=== PATIENT | female | born 1965 | race Caucasian/White ===

== ENCOUNTER 2020-03-29 01:48 | Emergency (ER) | payer OTHER, SELFPAY ==
[2020-03-29 01:50] VITALS: BP 157/89; PULSE 116; RESP 16; TEMP 37.1; O2SAT 98; BMI 28.1
--- NOTE | 2020-03-29 02:42 | ED.VIS.GEN ---
History of Present Illness Chief Complaint: Vag Bleeding Informant: Patient Onset: Days Narrative: Patient presents with heavy vaginal bleeding. She states she last had a normal period in September. She did not have any bleeding in October, November, or December. In January she had some mild spotting. Late last week she had some mild bleeding. For the past 2 days has had some intermittent cramping relieved with Advil. By the time she left work last evening bleeding had completely subsided. Patient woke from sleep early this morning with heavy bleeding. She states she did pass multiple clots into the toilet. At this time cramping has completely resolved. Past Medical History - Allergies and Home Meds Allergies/Adverse Reactions: Allergies No Known Allergies Allergy (Verified 03/29/20 01:55) Primary Care Physician: Vanessa Perez MD [STAFF PHYSICIAN] - 1 Week Past Medical History: None Smoking Status: Never smoker Review of Systems General: Denies: Chills, Fever Eyes: Denies: Visual changes - bilaterally ENT: Denies: Bilateral ear pain Cardiovascular: Denies: Chest pain Respiratory: Denies: Dyspnea, Cough Gastrointestinal: Reports: Abdominal pain - Pelvic cramping. Denies: Nausea, Vomiting, Diarrhea Genitourinary: Denies: Dysuria Neurological: Denies: Headache Psych: Denies: Depression Hematologic: Denies: Easy bruising, Easy bleeding Allergy: Denies: Uticaria Physical Exam Vital Signs/Narrative: Vital Signs Temp Pulse Resp BP Pulse Ox 03/29/20 01:50 98.7 F 116 H 16 157/89 H 98 Inital Vital Signs reviewed: Yes General: Well nourished, Well developed Head: Normocephalic ENT: Moist mucous membranes Neck: Supple Cardiovascular: Regular rhythm, Tachycardia Respiratory: No distress, CTA bilaterally Abdomen: Soft, Nontender, Normal bowel sounds : - - Pelvic exam reveals bleeding from the cervical office. Small clots were removed from the vaginal vault. No lesions or masses are noted. Extremities: Nontender Skin: Normal color Neurological: Alert, Oriented x3 Psychological: Normal affect Diagnostic/Tx/Re-eval Laboratory Results 03/29/20 03/29/20 03/29/20 02:00 02:00 02:00 WBC 8.5 RBC 4.28 Hgb 10.8 L Hct 34.7 L MCV 81.1 MCH 25.2 L MCHC 31.1 L RDW Std Deviation 56.3 H RDW Coeff of Sukhdeep 19.2 H Plt Count 286 MPV 9.5 Immature Gran % (Auto) 0.400 Neut % (Auto) 62.7 Lymph % (Auto) 22.5 Dickinson % (Auto) 11.7 H Eos % (Auto) 2.0 Baso % (Auto) 0.7 Absolute Neuts (auto) 5.3 Absolute Lymphs (auto) 1.90 Nucleated RBC % 0 PT 13.4 INR 1.1 APTT 30.6 Sodium 137 Potassium 3.4 L Chloride 105 Carbon Dioxide 26.0 Anion Gap 6 BUN 10 Creatinine 0.76 Estim Creat Clear Calc 71.63 Est GFR (MDRD) Af Amer 103 Est GFR (MDRD) Non-Af 85 BUN/Creatinine Ratio 13.2 Glucose 105 Calcium 8.4 L Serum , Qual 03/29/20 02:00 WBC RBC Hgb Hct MCV MCH MCHC RDW Std Deviation RDW Coeff of Sukhdeep Plt Count MPV Immature Gran % (Auto) Neut % (Auto) Lymph % (Auto) Dickinson % (Auto) Eos % (Auto) Baso % (Auto) Absolute Neuts (auto) Absolute Lymphs (auto) Nucleated RBC % PT INR APTT Sodium Potassium Chloride Carbon Dioxide Anion Gap BUN Creatinine Estim Creat Clear Calc Est GFR (MDRD) Af Amer Est GFR (MDRD) Non-Af BUN/Creatinine Ratio Glucose Calcium Serum , Qual NEGATIVE - Medical Decision Making Patient's heart rate is improved to 100 with IV fluids. Test results are discussed with her. At this time her hemoglobin is 10.8. Pelvic examination does not reveal mass or any unusual source of bleeding. Patient is requesting something to help her slow down the bleeding. I spoke with Dr. Perez and she suggested writing Aygestin 3 times daily x3 days then twice daily x3 days. Patient is to call the office for follow-up. We do not have this medication available in our system. I spoke with the pharmacist and they confirmed it is not available here currently. Patient will pick the prescription up in the morning. ED Disposition - Plan for ED Patient: Disposition: Home or Assisted Living Diagnosis: Menorrhagia Instructions: ED Bleeding Menstrual Heavy Prescriptions: Norethindrone [Aygestin] 5 mg PO TID #15 tab Transmission Status: [facility] to [facility] Referrals: Vanessa Perez MD [STAFF PHYSICIAN] - 1 Week
[2020-03-29 02:50] LABS: Absolute Neutrophil Count 5.3 X10^3/uL (2.0-7.7); Basophil# 0.06 X10^3/uL; Basophil% 0.7 % (0-1); Eosinophil# 0.17 X10^3/uL; Hematocrit 34.7 % (37-47); Hemoglobin 10.8 g/dL (12.0-15.0); Lymphocyte % 22.5 % (19-41); Mean Corp Hgb Conc 31.1 g/dL (32-36); Mean Corpuscular Hgb 25.2 pg (27.0-32.0); Mean Corpuscular Volume 81.1 fL (81-99); Mean Platelet Vol. 9.5 fl (6.2-12.0); Monocyte# 0.99 X10^3/uL; Monocyte% 11.7 % (0-10); NRBC Flagged by Analyzer 0 % (0-5); Neutrophil % 62.7 % (47-70); Platelet Count 286 K/mm3 (150-450); RBC Distribution Width CV 19.2 % (11.6-14.6); RBC Distribution Width SD 56.3 fl (35.1-43.9); Red Blood Count 4.28 M/mm3 (4.2-5.4); White Blood Count 8.5 K/mm3 (4.4-11.0)
[2020-03-29 02:56] LABS: Internal QC Validated? YES +Cl - CLEAR BKGD; Pregnancy, Serum, hCG Quali. NEGATIVE Negative
[2020-03-29 03:01] LABS: Anion Gap 6 (5-15); BUN 10 mg/dL (7-18); BUN/Creat Ratio 13.2 RATIO (10-20); Calcium,Total 8.4 mg/dL (8.5-10.1); Chloride 105 mmol/L (98-107); Creatinine, Serum 0.76 mg/dL (0.55-1.02); EST Glomerular Filtration Rate 85 mL/min (>60); Est Glom Filt Rate - Afr Amer 103 mL/min (>60); Estimated Creatinine Clearance 71.63 ml/min; Glucose 105 mg/dL (74-106); Potassium 3.4 mmol/L (3.5-5.1); Sodium Level 137 mmol/L (136-145)
[2020-03-29 03:06] LABS: International Normalized Ratio 1.1; Partial Thromboplast Time 30.6 Seconds (24.1-36.2); Prothrombin Time (Protime)PT. 13.4 SECONDS (11.7-14.9)
[2020-03-29 03:55] VITALS: BP 151/87; PULSE 91; RESP 15; O2SAT 97
== END 2020-03-29 04:15 | disposition home or self-care (01) ==
PROVIDERS: Emergency Provider Emergency Medicine; PCP Family Medicine
DX: N92.0 Excessive and frequent menstruation with regular cycle (principal)
CPT/HCPCS: 80048; 84703; 85025; 85610; 85730; 96360; 99283; J7030; A4216

== ENCOUNTER 2020-06-16 19:48 | Emergency (ER) | payer OTHER, SELFPAY ==
[2020-06-16 19:50] VITALS: BP 134/67; PULSE 101; RESP 16; TEMP 36.6; O2SAT 98; BMI 26.6
[2020-06-16 19:51] VITALS: BP 134/67; PULSE 111; RESP 18; TEMP 36.6; O2SAT 97
[2020-06-16 20:49] LABS: Absolute Neutrophil Count 7.6 X10^3/uL (2.0-7.7); Basophil# 0.09 X10^3/uL; Basophil% 0.8 % (0-1); Eosinophil# 0.24 X10^3/uL; Eosinophils% 2.2 % (0-5); Hematocrit 39.9 % (37-47); Hemoglobin 12.7 g/dL (12.0-15.0); Lymphocyte % 16.7 % (19-41); Mean Corp Hgb Conc 31.8 g/dL (32-36); Mean Corpuscular Hgb 26.7 pg (27.0-32.0); Mean Platelet Vol. 9.6 fl (6.2-12.0); Monocyte# 1.05 X10^3/uL; Monocyte% 9.7 % (0-10); NRBC Flagged by Analyzer 0 % (0-5); Neutrophil # 7.58 X10^3/uL (2.7-7.7); Neutrophil % 70.3 % (47-70); Platelet Count 379 K/mm3 (150-450); RBC Distribution Width CV 15.6 % (11.6-14.6); RBC Distribution Width SD 47.4 fl (35.1-43.9); Red Blood Count 4.75 M/mm3 (4.2-5.4); White Blood Count 10.8 K/mm3 (4.4-11.0)
--- NOTE | 2020-06-16 21:01 | ED.DCSUM_ITS ---
- ER Visit Summary Date of Service: 06/16/20 Chief Complaint: Vaginal bleeding History of Present Illness: The patient is a [address] Veronica. She has a history of a large fibroid and had an IUD placed last month. Patient reports she has vaginal bleeding that began approximately 5 days ago. States that currently is similar to her typical.. However, it was heavy this afternoon she passed clots. She reports that she had a crampy lower abdominal pain this afternoon was 5-10 in severity. She denies any pain now. She reports that she could feel the strings to her IUD at her introitus prior to coming the emergency department. Physical Examination: Vitals: Stable. Afebrile. General: Well-nourished and well-developed. Head: Normocephalic atraumatic. Neck: Supple, no lymphadenopathy. No JVD. Nontender. Cardiovascular: Tachycardic regular rhythm. No murmurs. Respiratory: No respiratory distress. Clear to auscultation bilaterally. Abdominal: Soft, nontender, nondistended, normal bowel sounds. No guarding, rebound, or peritoneal signs. Pelvic: Normal external genitalia. There is mild active bleeding, but no bright red blood in the vault. There is clot and old appearing blood. The IUD is sitting in the vaginal canal. It was removed without any resistance. Back: Nontender. Extremities: Nontender, no edema. Skin: Normal color, no rash. Neurologic: Alert and oriented ?3. Cranial nerves II through XII are intact. Normal strength and sensation. Psych: Normal affect. Test Results: CBC is normal. Emergency Department Course and Treatment: Patient is resting comfortably. Treatment Plan: Patient was discussed with Dr. Veronica. At this time I do not think that the IUD was implanted in her vaginal wall. She is instructed to begin an Aygestin taper. Follow-up Dr. Veronica in 1 week for another exam. Return to the emergency department for any worsening symptoms. Disposition: To home in improved and stable condition. Impression: 1. Irregular vaginal bleeding. 2. Uterine fibroids. 3. IUD removal. This note was generated with [employer] software. It may contain incorrect words, spelling, and punctuation that were not noted in review of the chart prior to signing ED Disposition - Plan for ED Patient: Disposition: Home or Assisted Living Instructions: ED FIBROIDS Referrals: Amna Veronica DO [STAFF PHYSICIAN] - 5-7 Days
== END 2020-06-16 21:29 | disposition home or self-care (01) ==
LOC: ED 20:37
PROVIDERS: Emergency Provider Emergency Medicine; PCP Family Medicine
DX: N93.9 Abnormal uterine and vaginal bleeding, unspecified (principal); D25.9 Leiomyoma of uterus, unspecified; Z30.432 Encounter for removal of intrauterine contraceptive device
CPT/HCPCS: 85025; 99283

== ENCOUNTER → 2020-08-17 08:18 | Outpatient (CLI) | payer OTHER, SELFPAY ==
--- NOTE | 2020-08-17 08:21 | BI_ITS ---
MAMMOGRAPHY - BILATERAL SCREENING REASON FOR EXAM: Female, 54 years old. Routine annual screening examination. PERTINENT HISTORY: Mother with breast cancer. TECHNIQUE: Digital bilateral breast ion (3D mammographic acquisition) in the CC and MLO projections. 2-D mediolateral oblique (MLO) and craniocaudad (CC) views of both breasts were obtained. CAD: Full Field Digital Mammography with Computer Added Detection was performed. COMPARISON: None. Baseline examination. FINDINGS: Breast Composition: The breasts are heterogeneously dense, which may obscure small masses. There are no dominant masses or suspicious calcifications. No other significant abnormalities are identified. BI/SCREEN MAMM (CAD) W/ION BILAT IMPRESSION: Negative screening mammogram. Yearly followup mammogram recommended. (A) ASSESSMENT CATEGORY: BIRADS Category 1: Negative. A letter regarding these results will be sent to the patient by the facility within 30 days. Approximately 10% of breast cancers are not detected by mammography. A normal mammogram should not delay biopsy of a clinically suspicious abnormality. [id number] Electronically Signed: Bo Gunter, at 11:17 EDT , Service support ,
== END ==
PROVIDERS: PCP Family Medicine; Referring Provider Obstetrics & Gynecology; Visit Provider Obstetrics & Gynecology
DX: Z12.31 Encounter for screening mammogram for malignant neoplasm of breast (principal)
CPT/HCPCS: 77063; 77067

== ENCOUNTER 2020-09-07 10:41 | Inpatient (IN) | payer OTHER, SELFPAY ==
--- NOTE | 2020-08-29 12:26 | EKG12_ITS ---
Test Reason : PRE OP Blood Pressure : / mmHG Vent. Rate : 115 BPM Atrial Rate : 115 BPM P-R Int : 160 ms QRS Dur : 074 ms QT Int : 330 ms P-R-T Axes : 040 033 -31 degrees QTc Int : 456 ms Sinus tachycardia Nonspecific ST and T wave abnormality Abnormal ECG Confirmed by SY NGUYEN, ELIZABETH ([id number]), material expeditor CHARLOTTE KENDALL ([id number]) on 08/30/2020 10:16:36 AM Referred By: Dc Bautista Confirmed By:ELIZABETH DAN MD
[2020-08-29 14:58] LABS: Hematocrit 43.7 % (37-47); Hemoglobin 13.3 g/dL (12.0-15.0); Mean Corp Hgb Conc 30.4 g/dL (32-36); Mean Corpuscular Hgb 25.7 pg (27.0-32.0); Mean Corpuscular Volume 84.4 fL (81-99); Mean Platelet Vol. 10.1 fl (6.2-12.0); Platelet Count 319 K/mm3 (150-450); RBC Distribution Width CV 18.6 % (11.6-14.6); RBC Distribution Width SD 56.6 fl (35.1-43.9); Red Blood Count 5.18 M/mm3 (4.2-5.4); White Blood Count 7.3 K/mm3 (4.4-11.0)
--- NOTE | 2020-09-06 18:59 | HP.PCM_ITS ---
History and Physical Surgical History and Physical Date: 09/06/2020 Name: KENYETTA HERNANDEZ Age: 54 Date of : 1965 Kenyetta Hernandez, a 54 year old female 0 0 0 0 0, presents for Robotic assisted total laparoscopic hysterectomy bilateral salpingectomy, cystoscopy on September 07, 2020 at 7:30. -- Kenyetta reports that she started having heavy bleeding in March. Went to ER and was diagnosed with a fibroid. She feels she had a pap, Endometrial Bx. She had IUD placed first for bleeding control and this came out and then oral progesterone was uses. She continues with almost daily bleeding unless she increases her Norethindrone. If using this only once per day will most likely have spotting. She is really interested in a more definative treatment plan. Would like to discuss hysterectomy. She has never had a mammogram and advised order will be given. Will attempt to get records from [facility]. Planned RA TL[facility]/BS. PAT packet provided and reviewed, consents are signed. MEDICATIONS HISTORY: Current medications prescribed by our practice are: 1. norethindrone acetate 5 mg tablet, 1 PO QD ALLERGIES: No Known Drug Allergies Infections - Chicken pox Illnesses - Fibroid, anemia improved Accidents - no injuries of consequence Hospitalizations - None Review of Systems: GENERAL - Denies fever, or chills SKIN - Denies skin changes EYES - wears eye glasses EARS - Denies difficulty hearing NOSE - Denies nasal congestion or bleeding MOUTH - Denies sore throat or difficulty swallowing NECK - Denies pain or swelling RESPIRATORY - Denies shortness of breath or wheezing CARDIOVASCULAR - Denies palpitations or chest pain GASTROINTESTINAL - Denies nausea, vomiting, diarrhea, constipation GENITOURINARY - irregular bleeding, known fibroid, intermittent discomfort MUSCULOSKELETAL - back pain NEUROLOGICAL - Denies localized numbness or weakness PSYCHIATRIC - Denies depression or anxiety ENDOCRINE - Denies heat or cold intolerance, weight loss or gain HEMATO-IMMUNOLOGIC - Denies excessive bleeding with cuts SOCIAL HISTORY: Alcohol Use - denies drinking Smoking - denies smoking Diet - no special diet Lifestyle - active Employer - [employer] Description - [employer] Illicit Drug Use - denies use of street drugs Sexual Activity - never has been sexually active Hours Worked - 40+ Control - abstinence FAMILY HISTORY: MENSTRUAL HISTORY: LMP Known?- Approximate-Month Known, Regularity - bleeds between periods, LMP - 07/21/20, Age Onset Menarche - 16 PAST PREGNANCIES: Total Pregnancies - 0; Full Term Pregnancies - 0; Premature - 0; Abortions, Induced - 0; Abortions, Spontaneous - 0; Ectopics - 0; Multiple Births - 0; Living Children - 0 SURGICAL HISTORY: 1. none ; - PHYSICAL EXAM BP- 150/74 Sitting, Right arm, regular cuff Weight- 148.18885 lbs Height- 62.25 inch BMI:26.91 CONSTITUTIONAL - NAD, well nourished, and well developed SKIN - No rash, lesions, or ulcers HEENT - Normocephalic, PERRLA, EOMI NECK - No nodes, no nuchal rigidity and thyroid normal size and texture LYMPH NODES - Palpation of lymph nodes in neck and groins within normal limits LUNGS - CTA x2 without wheezes, crackles or rales CARDIAC - Regular rate and rhythm without rubs, murmurs, or gallops ABDOMEN - Without hepatosplenomegaly, distention, masses, rebound, or guarding; normal bowel sounds; no hernias EXTREMITIES - No edema or calf tenderness NEUROLOGICAL - Cranial nerves II-XII grossly intact PSYCHIATRIC - A and O to time, place, person, mood and affect External Genital Vagina - non-tender without lesions Urethra/Urethral Meatus - non-tender Bladder - non-tender Vagina - vaginal dsouza are pink and moist without loss of rugae and no evidence of atrophy Cervix - without cervical motion tenderness and has normal size and features without evident lesions Adnexa - clear without masses or tenderness ASSESSMENT/PLAN: 1. Irregular Menstruation, Unspecified Pt with heavy bleeding for months, failed IUD with expulsion, not controlled with Aygestin EMB neg from [facility] U/s at [facility] with 9cm intramural posterior fibroid For [facility] BS, cystoscopy. R/b/a discussed. No changes in health or medications, no limitations in activity. 2. Leiomyoma Of Uterus, Unspecified U/s [facility] 9cm posterior intramural fibroid For [facility], cystoscopy
[2020-09-07] VITALS (11 sets, daily range): BP systolic 126–148; BP diastolic 50–79; PULSE 63–99; RESP 14–20; TEMP 36.4–37.3; O2SAT 95–100; BMI 25.9
[2020-09-07 06:33] LABS: Internal QC Validated? YES +Cl - CLEAR BKGD; Pregnancy, Urine Negative Negative
[2020-09-07] MEDS: Lactated Ringers 1,000 ML 100 ML IV (06:49)
[2020-09-07] MEDS: Lactated Ringers 1,000 ML 15 ML IV (07:20)
[2020-09-07] MEDS: Cefotetan 2 GM in 0.9% NS 100 ML IV (07:23)
--- NOTE | 2020-09-07 07:30 | HYST_PTH ---
PATIENT: WILLIE SANTANA LOC: MS3 U#:[id number] AGE/SX: 54/F ROOM: MS318 RE09/07/[address]: Dr. Dc Bautista MD : 1965 BED: 1 DIS: 09/08/2020 SPEC #: [id number] RECD: 09/07/20 09:52 STATUS: LOVELY REAngela #: [id number] TYSON: 09/07/20 07:[address]: Dc Bautista DEPT: SURGICAL PATHOLOGY RECD BY: Ant Gusman ENTERED: 09/07/20 10:21 SP TYPE: HYSTERECT OT DR: No Primary Care Phys Tissues: Uterus, NOS Procedures: Surgery Specimen Level V HEADER OPERATION: Lap robotic hysterectomy, bilateral salpingectomy, cysto PRE-OP DIAGNOSIS: Irregular menstruation; leiomyoma of uterus TISSUE SUBMITTED: Uterus, cervix, bilateral fallopian tubes MICROSCOPIC DIAGNOSIS Uterus, cervix, bilateral fallopian tubes, hysterectomy and bilateral salpingectomy: Cervix - chronic cystic cervicitis. Endometrium - weakly proliferative endometrium. Myometrium - intramural and submucosal leiomyomas (largest measuring 10 cm in greatest dimension). See comment. Bilateral fallopian tubes - no pathologic diagnosis. SJ:rg 09/08/20 COMMENT The largest leiomyoma shows focal degenerative changes. The intermediate sized leiomyoma also shows focal ectasia of lymphatics. Case has been reviewed in consultation with Dr. Duong who concurs with the above diagnosis. IDC:AM MICROSCOPIC DESCRIPTION Slides are reviewed. GROSS DESCRIPTION Received in fixative is one container labeled with the patient's name and designated uterus, cervix and bilateral fallopian tubes. The specimen consists of a hysterectomy specimen consisting of uterus with cervix and detached bilateral fallopian tubes. The uterus with cervix weighs 702 gm and measures 18 x 12 x 10 cm. The serosal surface is yancey, glistening. The uterus is distorted by a nodular mass. The ectocervical mucosa is unremarkable. The external os is patulous. The endocervical canal measures 4 cm in length and the endocervical mucosa is unremarkable. The endometrial cavity is compressed to one side and measures 11 cm in length and up to 10 cm in width. The endometrium is yancey, glistening without any mass lesion and measures 0.1 cm in thickness. Sections of the uterine wall reveal multiple intramural to submucosal nodular masses. The largest mass measures 10 cm in greatest dimension intramural to submucosal in location. Sections of largest mass reveal a focal area of hemorrhage and degenerative changes. Sections of additional masses reveal yancey whorled cut surfaces without areas of hemorrhage, necrosis or cystic degeneration. The uninvolved uterine wall measures up to 5 cm in thickness. The bilateral detached fallopian tubes are not identified as right or left. One of the fallopian tubes measure 5 cm in length and 0.5 cm in diameter. The fimbrial end is identified. The second fallopian tube measures 4 cm in length and 0.6 cm in diameter and it is similar in appearance to first one. Sections of both fallopian tubes do not reveal any mass lesion. Note Keeper sections are submitted in 12 cassettes as follows: 1 & 2 - cervix, 3-6 - anterior and posterior uterine wall, 7 & 8 - largest nodular mass, 9 - second largest nodular mass 10 - smaller nodular masses, 11 & 12 - bilateral fallopian tubes with each cassette containing one fallopian tube. / SANJUANITA:miller 09/07/20 TC:1 CPT: 85987
--- NOTE | 2020-09-07 10:50 | PCM.OPRPT ---
Report of Operation Date of Procedure: 09/07/20 Pre-Operative Diagnosis: Menorrhagia Post-Operative Diagnosis: Menorrhagia Surgery/Procedure Performed:: Robotic assisted diagnostic laparoscopy. Diagnostic laparotomy, total abdominal hysterectomy bilateral salpingectomy. Description of Surgical Findings:: EBL 200 cc Urine output: 900 cc IV fluids: 1800 cc Complications: None Specimen: Uterus cervix and bilateral fallopian tubes Findings: Upon insertion of the laparoscope large 10 cm uterine fibroid noted. Uterus 15 cm in length, 8 cm in width. No descensus of the uterus vaginally, narrow introitus. Normal fallopian tubes and ovaries. Consent: Patient arrived to the office with menorrhagia failed IUD that was expulsed months after placement. Was found to have 13 cm uterus on ultrasound with 9 cm submucosal fibroid. Based on these findings patient elected for hysterectomy. Patient desired minimally invasive laparoscopic surgery. Discussed above findings and that surgery could be difficult or complicated secondary to enlarged uterus and nulligravida. Patient stated understanding wished to proceed with minimally invasive surgery. Was scheduled for robotic assisted total laparoscopic hysterectomy bilateral salpingectomy, understanding the risk for/need for laparotomy technique and patient was agreeable. Patient understand the risk of procedure include but are not limited to visceral or vascular injury, prolonged hospitalization, blood loss need for transfusion, laparotomy, prolonged hospital stay. Patient stated understanding was proceed. All questions consent was signed. Procedure: Patient was brought back to the operating room where general anesthesia found to be adequate. 2 g of cefotetan were given for infection prophylaxis. Patient was appeared draped in dorsolithotomy position with yellowfin stirrups. Weighted speculum was placed in posterior aspect of the vagina single-tooth tenaculum used to grasp the anterior lip of the cervix cervical as he was dilated cervix. Uterine manipulator was placed. Verees needle was inserted the umbilicus water sleep test was passed abdomen was insufflated. Supraumbilical midline incision for a millimeter trocar was made. A millimeter trocar was inserted laparoscope was inserted and above findings were noted. Bilateral 8 mm trocar incisions were made and trochars were inserted under direct visualization. Left upper quadrant Napier's point 5 mm trocar was inserted under direct visualization. Robot was docked with a fenestrated bipolar and monopolar scissors. Left round ligament was cut and cauterized with fenestrated bipolar monopolar scissors anterior posterior flap of the broad ligament were isolated bladder flap was developed. Utero-ovarian ligament was identified cut and cauterized. Left fallopian tube was identified to fimbria, mesosalpinx was cut and cauterized. Left lobe which was removed and sent to pathology. Left uterine vessel was cut and cauterized. Right fallopian tube was identified to the fimbriated cut and cauterized the mesosalpinx. Right round ligament was identified cut and cauterized anterior flap the broad ligament was identified and met with the previous bladder flap. At this time based on limited visualization and limited manipulation with the manipulator it was decided that the surgery could not be further performed safely. Robot was undocked abdomen was deflated trochars removed and direct visualization. Pfannenstiel incision was made skin with a scalpel. The fascia incised and extended laterally with Dial scissors. Inferior aspect of the fascia was grasped with a Charles clamp and the underlying rectus pronounced muscle dissected off sharply Dial scissors. In a similar fashion superior aspect of the fascia was grasped with Charles clamp and the underlying rectus muscle dissected off sharply. Peritoneum was entered sharply. Peritoneum was extended superiorly inferiorly with good visualization of bladder. Jaya retractor was inserted. Charles clamps were placed at cornua. Right ovarian ligament was cut and ligated with Zeppelin clamp Metzenbaum scissors and Jeevan stitch. Right uterine vessel was cut and ligated in similar fashion. Right uterine vessel was dissected laterally from the uterus using Zeppelin clamps Metzenbaum scissors and suture ligation to the level of the cervix. Bladder was further dissected beyond the level of the cervix. Left uterine vessel was continued to be dissected using Zeppelin clamps and Metzenbaum scissors with suture ligation. At the level of the cervix. Right ankle zeppelins were used to make colpotomy. Uterus and cervix removed sent to pathology. Uterus was closed with [id number] sutures. Good pneumostasis noted. Jaya was removed. Fascia was closed in a continuous running fashion. Skin was closed in a subcutaneous fashion. Laparoscopic port sites were closed in a subcutaneous fashion. All counts correct x2. Patient tolerated the procedure well was brought to recovery in a stable condition. blast furnace keeper helper: Tito Chairez Type of Anesthesia:: General
[2020-09-07] MEDS: Lactated Ringers 1,000 ML 125 ML IV ×2 (10:57→14:20)
[2020-09-07] MEDS: Ketorolac 30 MG/ML Syringe IV ×3 (11:08→22:04)
[2020-09-07] MEDS: HYDROmorphone 0.5 MG/0.5 ML SYRINGE IV (12:14)
[2020-09-07] MEDS: 0.9% Saline Lock 10 ML Syringe IV ×2 (17:20→22:05)
[2020-09-07] MEDS: Enoxaparin 40 MG/0.4 ML Syringe SC (20:12)
[2020-09-07] MEDS: oxyCODONE 5 MG Tablet PO (20:16)
[2020-09-08 04:15] VITALS: BP 120/55; PULSE 86; RESP 18; TEMP 36.9; O2SAT 96
[2020-09-08] MEDS: Ketorolac 30 MG/ML Syringe IV ×2 (04:18→11:17)
[2020-09-08] MEDS: 0.9% Saline Lock 10 ML Syringe IV ×2 (04:18→11:24)
[2020-09-08 05:49] LABS: Hematocrit 38.4 % (37-47); Hemoglobin 11.9 g/dL (12.0-15.0); Mean Corpuscular Hgb 26.4 pg (27.0-32.0); Mean Corpuscular Volume 85.3 fL (81-99); Mean Platelet Vol. 9.9 fl (6.2-12.0); Platelet Count 285 K/mm3 (150-450); RBC Distribution Width CV 18.8 % (11.6-14.6); RBC Distribution Width SD 58.5 fl (35.1-43.9); White Blood Count 10.4 K/mm3 (4.4-11.0)
[2020-09-08 07:45] VITALS: BP 118/58; PULSE 88; RESP 16; TEMP 36.9; O2SAT 98
[2020-09-08 07:55] VITALS: O2SAT 96
--- NOTE | 2020-09-08 08:54 | PCM.PN.OB ---
Subjective: No overnight complaints. Pain well controlled. Denies chest pain, shortness of breath, nausea vomiting. - Physical Exam Vitals/I&O's: Vital Signs Temp Pulse Resp BP Pulse Ox 98.4 F 88 16 118/58 L 98 09/08/20 07:45 09/08/20 07:45 09/08/20 07:45 09/08/20 07:45 09/08/20 07:45 Oxygen Flow Rate (L/min) 6 Oxygen Delivery Method Room Air Weight: 146 lb 6.191 oz Body Mass Index (BMI) 25.9 Intake and Output for Last 24 Hours 09/06/20 09/07/20 09/08/20 23:59 23:59 23:59 Intake Total 2995.84 / 2995.84 650 / 650 Output Total 1600 / 1600 1600 / 1600 Balance 1395.84 / 1395.84 -950 / -950 General: Alert, Oriented x3, Cooperative, No apparent distress HEENT: Atraumatic, PERRLA, Normocephalic Oral: Moist Mucosa Neck: Supple, No JVD Lungs: Clear to auscultation, No rhonchi, No wheeze, No rales Cardiovascular: Regular rate, Regular Rhythm, No murmurs Abdomen: Bowel Sounds Present, Soft, Non Tender, Non-Distended Extremities: No clubbing, No cyanosis, No edema Psych/Mental Status: Normal Affect, Appropriate, Alert and oriented to time, place, person, mood and affect Laboratory Results 09/08/20 05:25: WBC 10.4, RBC 4.50, Hgb 11.9 L, Hct 38.4, MCV 85.3, MCH 26.4 L, MCHC 31.0 L, RDW Std Deviation 58.5 H, RDW Coeff of Sukhdeep 18.8 H, Plt Count 285, MPV 9.9 Current Medications Enoxaparin Sodium (Enoxaparin 40 Mg/0.4 Ml Syringe) 40 mg SC DAILY [facility] Last Admin: 09/07/20 20:12 Dose: 40 mg Documented by: Hydromorphone HCl (Hydromorphone 0.5 Mg/0.5 Ml Syringe) 0.5 mg IV Q3H PRN PRN PRN Reason: Pain Score 4-10 Last Admin: 09/07/20 12:14 Dose: 0.5 mg Documented by: Ketorolac Tromethamine (Ketorolac 30 Mg/Ml Syringe) 30 mg IV Q6H RAVI Stop: 09/12/20 10:58 Last Admin: 09/08/20 04:18 Dose: 30 mg Documented by: Ondansetron HCl (Ondansetron 4 Mg/2 Ml Vial) 4 mg IV Q4H PRN PRN PRN Reason: NAUSEA Oxycodone HCl (Oxycodone 5 Mg Tablet) 5 mg PO Q4H PRN PRN PRN Reason: Pain Score 4-10 Last Admin: 09/07/20 20:16 Dose: 5 mg Documented by: Sodium Chloride (0.9% Saline Lock 10 Ml Syringe) 10 - 40 ml IV UD PRN PRN Reason: SALINE FLUSH Last Admin: 09/08/20 04:18 Dose: 20 ml Documented by: Medical Necessity - Tobacco Use Smoking Status: Never smoker Tobacco Use: Non-smoker Assessment/Plan Postoperative day 1 status post robotic assisted diagnostic laparoscopy, diagnostic laparotomy total abdominal hysterectomy bilateral salpingectomy. -Meeting all postoperative criteria: Ambulating, tolerating regular diet, voiding spontaneously, pain well controlled -Okay to discharge home today -Follow-up in 2 weeks at scheduled appointment
--- NOTE | 2020-09-08 08:57 | DCINST_ITS ---
Discharge Diet: No Restrictions Discharge Activity: Return to Normal Activity, May not drive while taking narcotic pain medications., May Shower, - - No tub baths for 2 weeks May resume sexual activity in: 2 weeks Lifting Restrictions: No lifting over 25 to 30 pounds for 2 to 3 weeks Call your doctor if your incision/area has: Foul Smelling Discharge Call your doctor if you observe: Fever of 101 or Higher, Shortness of breath, Chest pain Allergies/Adverse Reactions: Allergies No Known Allergies Allergy (Verified 08/29/20 08:08) Medications to take at Discharge Norethindrone [Aygestin] 5 mg PO DAILY 06/16/20 Ferrous Sulfate [Ferosul] 65 mg PO DAILY 08/29/20 Docusate Sodium [Colace] 100 mg PO BID #60 cap 09/08/20 Oxycodone [Oxyir] 5 mg PO Q6H PRN PRN 6 Days #24 tablet 09/08/20 The following prescriptions were given: Docusate Sodium [Colace] 100 mg PO BID #60 cap Transmission Status: Pending to [facility] Oxycodone [Oxyir] 5 mg PO Q6H PRN PRN 6 Days #24 tablet PRN Reason: Pain Score 6-10 Transmission Status: Sent to [facility] Primary Care Physician: Care Physician,No Primary [Primary Care Provider] - Test Results: Test results from this visit will be discussed in further detail at your follow- up appointment, if applicable. Please Follow Up With: Dc Bautista MD When: 2 weeks at scheduled appointment Proposed Discharge Date: 09/08/20
--- NOTE | 2020-09-08 10:50 | CASEMGMT ---
RN JOSE DAVID Face to Face with patient for initial transition planning/care coordination assessment. RN CM introduced self and role at [facility]. Patient lying in bed, alert and oriented. Patient willing to participate in assessment and is able to answer all questions appropriately. Care providers, pharmacy, and demographics verified. Patient wishes to discharge home, denies need for home health at this time. Patient states she has no further needs or concerns at this time. CM to follow for discharge planning needs that may arise. PCP: Abby [facility] Specialists: none Preferred Pharmacy: [place]/ [facility] Insurance: Au[employer] Designed Prescription Benefit: yes Living Will/HPOA: none LNOK: sister, parents Living Arrangements: Patient lives with sister and parents in a 2 story home. Patient independent and able to ambulate stairs. Transportation: Driving Service DME/HHC: patient states she has raised toilet at home. Patient denies further DME. Disposition Plan: Patient to discharge home with family support and follow-up plans in place. Marika RAPP, RN, CM
[2020-09-08] MEDS: Enoxaparin 40 MG/0.4 ML Syringe SC (11:17)
== END 2020-09-08 12:17 | disposition home or self-care (01) | DRG 743 ==
LOC: SDC 11:25 → MS3 09-08 08:52
PROVIDERS: Anesthesiology; Admitting Provider Obstetrics & Gynecology; Referring Provider Obstetrics & Gynecology; Visit Provider Obstetrics & Gynecology
PROC: 0UT90ZZ Resection of Uterus, Open Approach (ICD-10-PCS; principal; 2020-09-07 07:10)
DX: D25.1 Intramural leiomyoma of uterus (principal); D25.0 Submucous leiomyoma of uterus; N92.0 Excessive and frequent menstruation with regular cycle
CPT/HCPCS: 36415; 81025; 85027; 86850; 86900; 86901; 87635; 88307; 93005; 99251; C9803; J7120; A4216; G0463; U0003